=== PATIENT | female | born 1960 | race Caucasian/White ===

== ENCOUNTER 2018-03-16 17:05 | Emergency (ER) | payer SELFPAY ==
[2018-03-16] MEDS: LORAZEPAM 0.5 MG TAB PO (17:32)
[2018-03-16] MEDS: KETOROLAC 30 MG INJ IM (17:32)
[2018-03-16] MEDS: LIDOCAINE 1% (MDV) 10 ML INJ INFIL (17:32)
[2018-03-16] MEDS: DIPHTH/TET/ACEL PERTUSS (ADULT) 0.5 ML VIAL IM* (17:33)
== END 2018-03-16 18:23 | disposition home or self-care (01) ==
LOC: E/R 17:05
DX: S00.81XA Abrasion of other part of head, initial encounter (principal); I10 Essential (primary) hypertension; E11.9 Type 2 diabetes mellitus without complications; E66.9 Obesity, unspecified; R51 Headache; V89.2XXA Person injured in unspecified motor-vehicle accident, traffic, initial encounter; Z23 Encounter for immunization; Z68.29 Body mass index [BMI] 29.0-29.9, adult
CPT/HCPCS: 12002; 70450; 71045; 90471; 90715; 96372; 99285-25